=== PATIENT | male | born 1970 ===

== ENCOUNTER 2017-09-14 14:10 | Emergency (ER) | payer OTHER ==
[2017-09-14 14:52] VITALS: BP 128/83
--- NOTE | 2017-09-14 15:24 | UC ---
UC General HPI - HPI Summary HPI Summary: pt was lifting a full beer keg this am when he got sudden severe pain in his low back with spasm. states unable to stand or walk due to the spasm. denies fever, abdominal pain, saddle anesthesia and bowel/bladder dysfunction. no numb/ tingling to arms/legs. took 400mg advil at 8:30 then 800mg this afternoon. - History of Current Complaint Chief Complaint: UCBackPain Stated Complaint: BACK SPASMS Time Seen by Provider: 09/14/17 15:13 Hx Obtained From: Patient Onset/Duration: Sudden Onset Timing: Constant Pain Intensity: 6 Associated Signs & Symptoms: Positive: Back Pain. Negative: Abdominal Pain, Fever, Weakness - Allergy/Home Medications Allergies/Adverse Reactions: Allergies Allergy/AdvReac Type Severity Reaction Status Date / Time No Known Allergies Allergy Verified 09/14/17 14:43 Home Medications: Home Medications Ibuprofen TAB* [Advil TAB*] 800 mg PO Q6H PRN 09/14/17 [History Confirmed ] PMH/Surg Hx/FS Hx/Imm Hx Previously Healthy: Yes - Surgical History Surgical History: Yes Surgery Procedure, Year, and Place: cholesystectomy - Family History Known Family History: Positive: None - Social History Occupation: Employed Full-time Lives: With Family Alcohol Use: Rare Substance Use Type: None Smoking Status (MU): Never Smoked Tobacco - Immunization History Vaccination Up to Date: Yes Review of Systems Constitutional: Negative Skin: Negative Eyes: Negative ENT: Negative Respiratory: Negative Cardiovascular: Negative Gastrointestinal: Negative Genitourinary: Negative Motor: Negative Neurovascular: Negative Musculoskeletal: Other: - low back pain Neurological: Negative Psychological: Negative Is Patient Immunocompromised?: No All Other Systems Reviewed And Are Negative: Yes Physical Exam Triage Information Reviewed: Yes Appearance: Pain Distress Vital Signs: Initial Vital Signs Temp 99.4 F 09/14/17 14:44 Pulse 74 09/14/17 14:44 Resp 20 09/14/17 14:44 BP 128/83 09/14/17 14:44 Pulse Ox 98 09/14/17 14:44 Vital Signs Reviewed: Yes Eyes: Positive: Conjunctiva Clear ENT: Positive: Normal ENT inspection Neck: Positive: Supple, Nontender, No Lymphadenopathy, Other: - c-spine non tender Respiratory: Positive: Lungs clear, Normal breath sounds Cardiovascular: Positive: RRR, No Murmur Abdomen Description: Positive: Nontender, No Organomegaly, Soft Bowel Sounds: Positive: Present Musculoskeletal: Positive: Other: - neck/back: no gross deformity, swelling or discoloration. Tender over lumbar spine and L paraspinal mm lumbar region. superficial sensation intact, 5/5 strength and 2+ reflexes x4. No saddle anesthesia. unable toshow any rom in lumbar region due to pain/spasm. Neg staright leg raises x2. Neurological: Positive: Alert Psychological: Positive: Normal Response To Family, Age Appropriate Behavior Skin Exam: Normal Re-Evaluation - Re-Evaluation Second Eval Re-Evaluation Time: 16:05 Change: Improved - appears comfortable. notes spasm improved. Course/Dx - Course Course Of Treatment: no concern for infection. no acute abdomen and no cauda equina. no fx on xray. - Differential Dx - Multi-Symptom Provider Diagnoses: acute low back pain Discharge - Sign-Out/Discharge Documenting (check all that apply): Discharge/Admit/Transfer - Discharge Plan Condition: Improved Disposition: HOME Prescriptions: Cyclobenzaprine TAB* [Flexeril 10 MG TAB*] 10 mg PO TID #10 tab Naproxen [Naprosyn 500 mg tab] 500 mg PO BID 5 Days #10 tablet Patient Education Materials: Acute Low Back Pain (ED) Forms: *Work Release Referrals: Jesse Browne MD [Primary Care Provider] - 3 Days Additional Instructions: STOP THE ADVIL - Billing Disposition and Condition Condition: IMPROVED Disposition: HOME
[2017-09-14] MEDS ORDERED: LORazepam TAB(*) 1 MG PO ONE (15:27)
[2017-09-14] MEDS ORDERED: Morphine VIAL* 10 MG/ML 1 ML VIAL IM ONE (15:32)
--- NOTE | 2017-09-14 16:41 | RAD ---
Indication: Severe low back pain sudden onset. Distal radiation bilaterally. Comparison: [employer] Manager image from August 15, 2007 CT. Technique: Standing AP and lateral views lumbar sacral spine Report: Normal vertebral alignment. Negative for fracture. Preserved disc spaces. Unremarkable paravertebral soft tissue contours. Gallbladder fossa level surgical clips. IMPRESSION: Negative radiographic exam of the lumbar sacral spine for age.
== END 2017-09-14 17:19 | disposition home or self-care (01) ==
LOC: UCCORT 14:10
DX: M54.5 Low back pain (principal); M62.830 Muscle spasm of back
CPT/HCPCS: 72100; 96372; 99202; A9270-GY; G0463; J2270